=== PATIENT | male | born 1995 ===

== ENCOUNTER 2017-09-21 23:23 | Emergency (ER) | payer SELFPAY ==
--- NOTE | 2017-09-22 00:32 | C.PDOC ---
History Of Present Illness 22 years old male presents to ED with complaints of "not feeling good" since this afternoon. Patient complains of room spinning while change of position. Patient reports symptoms were worse earlier today. Denies weakness, numbness, tingling, fever, chills, headache, nausea, vomiting, allergies, PMHx, or medications. Time Seen by Provider: 09/22/17 00:19 Chief Complaint (Nursing): High Blood Pressure History Per: Patient History/Exam Limitations: no limitations Onset/Duration Of Symptoms: Hrs (Afternoon) Current Symptoms Are (Timing): Still Present Recent travel outside of the [place]: No Past Medical History Reviewed: Historical Data, Nursing Documentation, Vital Signs Vital Signs: Last Vital Signs Temp 98 F 09/22/17 01:11 Pulse 90 09/22/17 01:11 Resp 20 09/22/17 01:11 BP 125/84 09/22/17 01:11 Pulse Ox 96 09/22/17 02:13 - Medical History PMH: No Chronic Diseases Surgical History: No Surg Hx Family History: States: No Known Family Hx - Social History Hx Alcohol Use: No Hx Substance Use: No - Immunization History Hx Tetanus Toxoid Vaccination: No Hx Influenza Vaccination: No Hx Pneumococcal Vaccination: No Review Of Systems Constitutional: Negative for: Fever, Chills, Weakness Eyes: Negative for: Pain, Vision Change, Eyelid Inflammation, Redness ENT: Negative for: Ear Pain, Ear Discharge Cardiovascular: Positive for: Light Headedness. Negative for: Chest Pain, Palpitations, Orthopnea, Edema Respiratory: Negative for: Cough, Shortness of Breath, SOB with Excertion Gastrointestinal: Negative for: Nausea, Vomiting, Diarrhea, Melena Genitourinary: Negative for: Dysuria, Frequency, Hematuria Musculoskeletal: Negative for: Back Pain, Hand Pain Skin: Negative for: Rash Neurological: Positive for: Other (Room spinning while change of position ). Negative for: Weakness, Numbness, Headache Physical Exam - Physical Exam Appears: Non-toxic, No Acute Distress, In Acute Distress (mild) Skin: Normal Color, Warm, Dry Head: Atraumatic, Normacephalic Eye(s): bilateral: Normal Inspection, PERRL, EOMI, Other (No nystagmus noted) Ear(s): Bilateral: Normal Nose: Normal Oral Mucosa: Moist Tongue: Normal Appearing Lips: Normal Appearing Teeth: Normal Dentition Neck: Supple Chest: Symmetrical, No Tenderness Cardiovascular: Rhythm Regular Respiratory: Normal Breath Sounds, No Decreased Breath Sounds, No Rales, No Rhonchi, No Wheezing Gastrointestinal/Abdominal: Soft, No Tenderness Extremity: Normal ROM, No Tenderness, No Deformity Extremity: Bilateral: Atraumatic, Normal Color And Temperature, Normal ROM Neurological/Psych: Oriented x3, Normal Speech, Normal Cognition, Normal Motor, Normal Sensation, Other (no focal deficits ) Gait: Steady ED Course And Treatment O2 Sat by Pulse Oximetry: 96 (RA) Pulse Ox Interpretation: Normal Medical Decision Making Medical Decision Making: Patient has peripheral vertigo when sitting during evaluation. Plan: - Ordered 50mg Meclizine. Disposition Counseled Patient/Family Regarding: Diagnosis - Disposition Referrals: [facility] [place] [facility] [Outside] [facility] [place] [Outside] Disposition: HOME/ ROUTINE Disposition Time: 02:13 Condition: GOOD Prescriptions: Meclizine [Meclizine*] 25 mg PO TID PRN 3 Days #9 tab PRN Reason: Other Forms: [employer] ([place]) - Clinical Impression Clinical Impression: Vertigo - Scribe Statement The provider has reviewed the documentation as recorded by the Scribe Loretta Schwab All medical record entries made by the Scribe were at my direction and personally dictated by me. I have reviewed the chart and agree that the record accurately reflects my personal performance of the history, physical exam, medical decision making, and the department course for this patient. I have also personally directed, reviewed, and agree with the discharge instructions and disposition.
[2017-09-22 01:41] VITALS: RESP 20; TEMP 98
[2017-09-22 03:01] VITALS: BP 134/77; PULSE 82; O2SAT 98
== END 2017-09-22 02:59 | disposition home or self-care (01) ==
LOC: C.ER 23:23
DX: R42 Dizziness and giddiness (principal)